=== PATIENT | female | born 1980 | race Hispanic/Latino ===

== ENCOUNTER 2016-07-11 21:45 | Emergency (ER) | payer MEDICAID, SELFPAY ==
[2016-07-11] MEDS ORDERED: HYDROcodone/Acetaminophen 10/325 mg Tablet ONE (22:10)
[2016-07-11] MEDS ORDERED: Ibuprofen 800 MG TAB ONE (22:10)
--- NOTE | 2016-07-11 22:39 | CT ---
CT FACIAL BONES 07/11/2016 HISTORY: Trauma. Pain. COMPARISON: None. TECHNIQUE: Serial axial CT imaging at 2.5 mm intervals, through the maxillofacial bones, without contrast. Cor onal and sagittal reformatted imaging obtained. FINDINGS: The imaged brain parenchyma appears grossly unremarkable. There is mild mucosal thickening of the left frontal sinus. There is mild mucosal thickening of the left maxillary sinus. There is opacification of the sphenoid sinus, on the left. Imaged mastoid a ir cells are well aerated. There is no nasal bone fracture. The zygomatic arches and the pterygoid plates are intact. The orbital floor and the medial orbital wall appear intact bilaterally. Neither temporomandibular joint appear dislocated. There is no mandibular or maxillary fracture. T he imaged portions of the cervical spine appear unremarkable. IMPRESSION: 1. No maxillofacial fracture seen. 2. Opacified sphenoid sinus on the left. A follow-up nonemergent brain MRI advised, with and witho ut contrast. CODE T POS: [id number]
== END 2016-07-11 22:50 | disposition home or self-care (01) ==
LOC: NAV ERS 21:45
DX: S00.83XA Contusion of other part of head, initial encounter (principal); Y04.0XXA Assault by unarmed brawl or fight, initial encounter
CPT/HCPCS: 70486